=== PATIENT | male | born 1960 | race Caucasian/White ===

== ENCOUNTER → 2023-02-10 13:21 | Outpatient (CLI) | payer OTHER, SELFPAY ==
--- NOTE | ~2023-02-10 | US_ITS ---
EXAMINATION: US soft tissue LE LT DATE: 02/10/2023 13:43 INDICATION: Left calf lump. TECHNIQUE: Multiple grayscale and Doppler ultrasound images of the left calf were obtained. COMPARISON: None FINDINGS: There is a 6.0 x 1.7 x 2.4 cm cyst with low level echoes in the left calf. IMPRESSION: 1. 6.0 x 1.7 x 2.47 m cyst with low-level echoes in the left calf, most likely a chronic hematoma. Reviewed, dictated and finalized at location E.
== END ==
PROVIDERS: PCP Nurse Practitioner; Visit Provider Nurse Practitioner
DX: D23.72 Other benign neoplasm of skin of left lower limb, including hip (principal)
CPT/HCPCS: 76882